=== PATIENT | female | born 1940 | race Caucasian/White ===

== ENCOUNTER 2021-01-01 20:32 | Observation (INO) ==
[2021-01-01] MEDS ORDERED: *HR* FentaNYL (PF) 100 MCG/2 ML VIAL ONE (20:39)
[2021-01-01] MEDS ORDERED: *HR* FentaNYL (PF) 100 MCG/2 ML VIAL IVP ONE (20:42)
[2021-01-01] MEDS ORDERED: Isovue-370 500 ML BOTTLE IVP ONE (20:49)
[2021-01-01] MEDS ORDERED: DilTIAZem 50 MG/50 ML IV.SOLN IVC SCH (21:00)
[2021-01-01 21:15] LABS: Basophils % 0.1 %; Hematocrit 50.1 % (35.3-44.9); Hemoglobin 16.8 g/dL (11.5-15.4); Immature Granulocytes % 0.4 % (0-4); Lymphocytes # 0.6 K/mcL (0.6-4.6); Lymphocytes % 3.1 %; Mean Corpuscular HGB Conc 33.5 g/dL (31.6-35.5); Mean Corpuscular Hemoglobin 30.6 pg (28.0-33.3); Mean Corpuscular Volume 91.3 fL (83.0-100.0); Monocytes # 1.3 K/mcL (0.0-1.3); Monocytes % 6.6 %; Neutrophils # 18.1 K/mcL (1.6-8.9); Platelet Count 196 K/mcL (140-400); Red Blood Count 5.49 M/mcL (3.82-4.97); Red Cell Distribution Width 14.3 % (11.5-14.5); Segmented Neutrophils % 89.8 %; White Blood Count 20.2 K/mcL (4.3-11.1)
[2021-01-01] MEDS ORDERED: HUM PROTHROMBIN CPLX(PCC)4FACT 2,500 UNIT in Water for inj. (sterile) 100 ML IVPB ONE (21:15)
[2021-01-01] MEDS ORDERED: *HR* Etomidate 20 MG/10 ML AMPUL IVP ONE (21:20)
[2021-01-01] MEDS ORDERED: *HR* Rocuronium Bromide 50 MG/5 ML VIAL IVP ONE (21:20)
[2021-01-01 21:27] LABS: INR 1.5; Prothrombin Time 17.4 Seconds (9.4-12.1)
[2021-01-01] MEDS ORDERED: [UNRECOGNIZED DRUG - OTHER] IVPB ONE (21:30)
[2021-01-01] MEDS ORDERED: WATER FOR INJ IVPB ONE (21:30)
[2021-01-01] MEDS ORDERED: HUM PROTHROMBIN CPLX IVPB ONE (21:30)
[2021-01-01 21:38] LABS: Alanine Aminotransferase 19 Units/L (7-52); Albumin 4.7 g/dL (3.5-5.7); Albumin/Globulin Ratio 1.5 (1.1-2.2); Alkaline Phosphatase 92 Units/L (34-104); Aspartate Amino Transferase 29 Units/L (13-39); BUN/Creatinine Ratio 18 (6-26); Bilirubin,Total 2.3 mg/dL (0.3-1.0); Blood Urea Nitrogen 10 mg/dL (8-23); Calcium 9.2 mg/dL (8.6-10.3); Carbon Dioxide 23 mEq/L (23-29); Chloride 99 mEq/L (98-107); Digoxin 0.5 ng/mL (0.8-2.0); Globulin 3.2 g/dL (2.4-3.5); Glucose 190 mg/dL (70-105); Osmolality,Calculated 292 (280-300); Potassium 2.9 mEq/L (3.5-5.1); Sodium 139 mEq/L (136-145); Total Protein 7.9 g/dL (6.4-8.9); eGFR For African Americans > 60 (> 60); eGFR For Non-African Americans > 60 (> 60)
[2021-01-01 21:39] LABS: Troponin I 0.03 ng/mL (< 0.04)
[2021-01-01] MEDS ORDERED: Morphine Sulfate 2 MG/ML SYRINGE IVP PRN (22:54)
[2021-01-01] MEDS ORDERED: *HR* LORazepam 2 MG/ML VIAL IVP PRN (22:55)
[2021-01-02] MEDS ORDERED: Naloxone 0.4 MG/ML INJ IVP PRN (00:16)
[2021-01-02 01:17] VITALS: BP 166/78
[2021-01-02] MEDS ORDERED: Scopolamine Patch 1.5 MG PATCH.TD72 TD SCH (05:00)
== END 2021-01-02 08:39 | disposition expired ==
LOC: 2ANU 20:32 → EMEROOARM 20:32 → 2ANU 01-02 00:25
PROVIDERS: ADMIT Student in an Organized Health Care Education/Training Program; ATTEND Student in an Organized Health Care Education/Training Program